=== PATIENT | female | born 1970 | race Two or more races ===

== ENCOUNTER 2017-06-11 09:54 | Outpatient (CLI) | payer BC | END 2017-06-11 23:59 | disposition home or self-care (01) | LOC: US 09:54 | PROVIDERS: ATTEND Family Medicine | DX: N13.39 Other hydronephrosis (principal); D25.2 Subserosal leiomyoma of uterus; N83.202 Unspecified ovarian cyst, left side | CPT/HCPCS: 76700-TC ==

== ENCOUNTER 2017-06-30 09:08 | Outpatient (CLI) | payer BC ==
[2017-06-30 10:26] LABS: APPEARANCE,URINE CLEAR (CLEAR); BILIRUBIN,URINE NEGATIVE (NEGATIVE); BLOOD, URINE 1+ Ery/uL (NEGATIVE); COLOR,URINE YELLOW (YELLOW); KETONES,URINE NEGATIVE (NEGATIVE); LEUKOCYTE ESTERASE ,URINE NEGATIVE (NEGATIVE); NITRITE, URINE NEGATIVE (NEGATIVE); PROTEIN,URINE NEGATIVE (NEGATIVE); UGLUCOSE NEGATIVE (NEGATIVE); UROBILINOGEN,URINE 0.2 EU/dL (0.2)
[2017-06-30 10:33] LABS: CREATININE 0.5 mg/dL (0.6-1.3)
[2017-06-30 10:36] LABS: BACTERIA,URINE Rare /HPF (None Seen); SQUAMOUS EPITHELIAL CELL,UR Few /HPF (None Seen); WBC,URINE 0-2 /HPF (0-3)
== END 2017-06-30 23:59 | disposition home or self-care (01) ==
LOC: US 09:08
PROVIDERS: ATTEND Family Medicine
DX: D25.2 Subserosal leiomyoma of uterus (principal); N83.201 Unspecified ovarian cyst, right side; N13.30 Unspecified hydronephrosis; Z83.3 Family history of diabetes mellitus
CPT/HCPCS: 36415; 76856-TC; 81000-TC; 82565-TC; 84520-TC; 86304